=== PATIENT | female | born 1985 | race Caucasian/White ===

== ENCOUNTER 2018-11-29 22:58 | Emergency (ER) | payer SELFPAY ==
[~2018-11-29] VITALS: Ht 157.5 cm; Wt 46.3 kg
[2018-11-29 23:03] VITALS: Ht 157.5 cm; Wt 46.3 kg
[2018-11-29 23:57] VITALS: BP 113/74
== END 2018-11-29 23:57 | disposition home or self-care (01) ==
LOC: ED 22:58
DX: K08.89 Other specified disorders of teeth and supporting structures (principal)
CPT/HCPCS: J1885